=== PATIENT | female | born 1975 | race Caucasian/White ===

== ENCOUNTER → 2016-09-24 | Outpatient (CLI) | payer BC ==
--- NOTE | 2016-09-25 11:42 | MM ---
Reason for exam: screening (asymptomatic). Last mammogram was performed 1 year and 1 month ago. History: Patient had first child at age 33. Family history of breast cancer in mother at age 42 and breast cancer in sister at age 29. Retro-pectoral silicone gel implants in both breasts, July 2014. Physical Findings: A clinical breast exam by your physician is recommended on an annual basis and results should be correlated with mammographic findings. MG Screening Mammo Implant/CAD Bilateral CC, MLO, and ID view(s) were taken. Prior study comparison: August 23, 2015, bilateral MG 3d screen mammo imp/cad. October 29, 2012, bilateral digital screening mammo w/CAD. The breast tissue is heterogeneously dense. This may lower the sensitivity of mammography. Bilateral implants are intact. No significant changes when compared with prior studies. ASSESSMENT: Benign, BI-RAD 2 RECOMMENDATION: Routine screening mammogram of both breasts in 1 year.
== END | disposition home or self-care (01) ==
LOC: RADMAMWWP 13:49
PROVIDERS: ATTEND Obstetrics & Gynecology
DX: Z12.31 Encounter for screening mammogram for malignant neoplasm of breast (principal)

== ENCOUNTER → 2017-12-09 | Outpatient (CLI) | payer OTHER ==
--- NOTE | 2017-12-10 13:35 | MM ---
Reason for exam: screening (asymptomatic). Last mammogram was performed 1 year and 2 months ago. History: Patient had first child at age 33. Family history of breast cancer in mother at age 42 and breast cancer in sister at age 29. Retro-pectoral silicone gel implants in both breasts, July 2014. Physical Findings: A clinical breast exam by your physician is recommended on an annual basis and results should be correlated with mammographic findings. MG Screening Mammo Implant/CAD Bilateral CC, MLO, and ID view(s) were taken. Prior study comparison: September 24, 2016, bilateral MG screening mammo implant/CAD. August 23, 2015, bilateral MG 3d screen mammo imp/cad. The breast tissue is heterogeneously dense. This may lower the sensitivity of mammography. No suspicious abnormality. Retropectoral silicone implants. No significant changes when compared with prior studies. ASSESSMENT: Negative, BI-RAD 1 RECOMMENDATION: Routine screening mammogram of both breasts in 1 year.
== END | disposition home or self-care (01) ==
LOC: RADMAMWWP 15:37
PROVIDERS: ATTEND Obstetrics & Gynecology
DX: Z12.31 Encounter for screening mammogram for malignant neoplasm of breast (principal); Z80.3 Family history of malignant neoplasm of breast
CPT/HCPCS: 77067

== ENCOUNTER → 2018-12-27 | Outpatient (CLI) | payer OTHER ==
--- NOTE | 2018-12-29 09:42 | MM ---
Reason for exam: screening (asymptomatic). Last mammogram was performed 1 year and 1 month ago. History: Patient had first child at age 33. Family history of breast cancer in mother at age 42 and breast cancer in sister at age 29. Retro-pectoral silicone gel implants in both breasts, July 2014. Physical Findings: A clinical breast exam by your physician is recommended on an annual basis and results should be correlated with mammographic findings. MG Screening Mammo Implant/CAD Bilateral CC, MLO, and ID view(s) were taken. Prior study comparison: December 09, 2017, bilateral MG screening mammo implant/CAD. September 24, 2016, bilateral MG screening mammo implant/CAD. The breast tissue is heterogeneously dense. This may lower the sensitivity of mammography. Bilateral breast prothesis. No significant changes when compared with prior studies. ASSESSMENT: Benign, BI-RAD 2 RECOMMENDATION: Routine screening mammogram of both breasts in 1 year.
== END | disposition home or self-care (01) ==
LOC: RADMAMWWP 15:31
PROVIDERS: ATTEND Obstetrics & Gynecology
DX: Z12.31 Encounter for screening mammogram for malignant neoplasm of breast (principal); Z98.82 Breast implant status
CPT/HCPCS: 77067

== ENCOUNTER → 2019-02-18 | Outpatient (CLI) | payer OTHER ==
[2019-02-18 15:30] LABS: Basophils # (A) 0.1 k/uL (0-0.2); Basophils % (A) 1 %; Eosinophils # (A) 0.1 k/uL (0-0.7); Eosinophils % (A) 1 %; HCT 42.1 % (34.0-46.0); HGB 14.6 gm/dL (11.4-16.0); Lymphocytes # (A) 1.6 k/uL (1.0-4.8); Lymphocytes % (A) 16 %; MCHC 34.7 g/dL (31.0-37.0); MCV 89.1 fL (80.0-100.0); Mean Platelet Volume 7.3; Monocytes # (A) 0.5 k/uL (0-1.0); Monocytes % (A) 5 %; Neutrophils # (A) 7.7 k/uL (1.3-7.7); Neutrophils % (A) 76 %; Platelet Count 331 k/uL (150-450); RBC 4.73 m/uL (3.80-5.40); RDW 12.4 % (11.5-15.5); WBC 10.2 k/uL (3.8-10.6)
[2019-02-18 23:25] LABS: African American GFR (CKD) 90.8 (60.0-200.0); Albumin 4.8 g/dL (3.80-4.90); Albumin/Globulin Ratio 1.92 (1.60-3.17); Anion Gap 10.4 mmol/L (4.00-12.00); BUN/Creat Ratio 13.33 Ratio (12.00-20.00); Calcium 9.6 mg/dL (8.7-10.3); Carbon Dioxide 25.6 mmol/L (21.6-31.8); Globulin 2.5 g/dL (1.6-3.3); Potassium 3.7 mmol/L (3.5-5.5); Total Bilirubin 0.4 mg/dL (0.3-1.2); Total Protein 7.3 g/dL (6.2-8.2)
--- NOTE | 2019-02-19 21:14 | XR ---
EXAMINATION TYPE: XR KUB DATE OF EXAM: 02/18/2019 COMPARISON: None HISTORY: R 10.13, K 59.09 TECHNIQUE: Abdomen is examined in the frontal upright view. FINDINGS: Multiple surgical clips are within the abdomen. Psoas margins are normal. Organomegaly is n ot evident. No suspicious air-fluid levels are present. No differential air-fluid levels are present. IMPRESSION: 1. Nonspecific abdomen.
== END ==
LOC: LABWHC1 14:35
PROVIDERS: ATTEND Nurse Practitioner Family
DX: K59.09 Other constipation (principal); R10.13 Epigastric pain
CPT/HCPCS: 36415; 74018; 80053; 82150; 82977; 83690; 85025

== ENCOUNTER → 2019-02-22 | Outpatient (CLI) | payer OTHER ==
--- NOTE | 2019-02-22 10:09 | CT ---
EXAMINATION TYPE: CT abdomen pelvis wo con DATE OF EXAM: 02/22/2019 COMPARISON: None HISTORY: Generalized abdominal pain. Diarrhea CT DLP: 869 mGycm Examination of the solid and hollow viscera is limited given the lack of contrast. FINDINGS: LUNG BASES: No evidence for nodule. No evidence for infiltrate. LIVER/GB: Cholecystectomy clips noted. No space-occupying hepatic lesion. PANCREAS: No pancreatic mass identified. No inflammatory process seen. SPLEEN: No evidence for splenomegaly. No intrasplenic lesions seen. ADRENALS: No adrenal nodules identified. No evidence for thickening. KIDNEYS: No evidence for renal mass. No nephrolithiasis. No hydronephrosis. BOWEL: Appendix has a normal appearance. No evidence of bowel obstruction. No inflammatory process. Lymph nodes: No evidence for adenopathy greater than 1 cm. Abdominal aorta: Atheromatous changes seen. No evidence for aneurysm. Genital organs: Uterine masses felt to reflect underlying leiomyomatous change. Consider ultrasound c orrelation. Ovaries are grossly unremarkable. Other: No significant abnormality. IMPRESSION: Uterine masses felt to reflect underlying leiomyomatous change. Consider ultrasound correlation.
== END | disposition home or self-care (01) ==
LOC: RADCTMAIN 09:13
PROVIDERS: ATTEND Nurse Practitioner Family
DX: R10.84 Generalized abdominal pain (principal); R31.9 Hematuria, unspecified; R19.7 Diarrhea, unspecified; Z88.5 Allergy status to narcotic agent
CPT/HCPCS: 74176

== ENCOUNTER → 2019-03-04 | Outpatient (CLI) | payer OTHER ==
--- NOTE | 2019-03-04 09:08 | US ---
EXAMINATION TYPE: US transvaginal DATE OF EXAM: 03/04/2019 COMPARISON: CT 2018, US 2014 CLINICAL HISTORY: R19.09 UTERUS MASS. History of uterine, heavy irregular cycles, 8, para 5, miscarriage 3, history of tubal ligation and uterine ablation. TECHNIQUE: Transvaginal exam only per ordering physician. Date of LMP: 02/19/2019 EXAM MEASUREMENTS: Uterus: 10.5 x 7.3 x 9.3 cm Endometrial Stripe: 0.6 cm Right Ovary: 3.2 x 2.1 x 1.7 cm Left Ovary: 3.2 x 2.6 x 2.0 cm 1. Uterus: retroverted, enlarged, heterogeneous with multiple leiomyomas. The largest measures 5.1 x 3.9 x 3.6cm. These appear intramural. 2. Endometrium: appears wnl 3. Right Ovary: dominant follicle measuring 1.2cm 4. Left Ovary: multiple follicles with largest measuring 1.3cm 5. Bilateral Adnexa: wnl 6. Posterior cul-de-sac: small amount of free fluid IMPRESSION: 1. Heterogenous uterus with multiple probable leiomyomas the largest measuring up to 5.1 cm. These ap pear intramural. 2. Follicular changes of the ovaries, likely physiologic with a trace amount of free fluid in the pel vis, also likely physiologic.
== END | disposition home or self-care (01) ==
LOC: RADUSWWP 08:05
PROVIDERS: ATTEND Family Medicine
DX: R19.09 Other intra-abdominal and pelvic swelling, mass and lump (principal)
CPT/HCPCS: 76830

== ENCOUNTER → 2019-05-03 | Outpatient (CLI) | payer OTHER ==
[2019-05-03 17:11] LABS: Basophils % (A) 1 %; Eosinophils # (A) 0.2 k/uL (0-0.7); Eosinophils % (A) 2 %; HGB 14.1 gm/dL (11.4-16.0); Lymphocytes # (A) 2.2 k/uL (1.0-4.8); Lymphocytes % (A) 28 %; MCH 31.3 pg (25.0-35.0); MCHC 34.4 g/dL (31.0-37.0); MCV 91.1 fL (80.0-100.0); Mean Platelet Volume 7.5; Monocytes # (A) 0.5 k/uL (0-1.0); Monocytes % (A) 7 %; Neutrophils # (A) 4.8 k/uL (1.3-7.7); Neutrophils % (A) 61 %; Platelet Count 340 k/uL (150-450); RDW 12.2 % (11.5-15.5); WBC 7.8 k/uL (3.8-10.6)
[2019-05-03 17:28] LABS: African American GFR (CKD) >90 (>60 ml/min/1.73 sqM); Anion Gap 9 mmol/L; Blood Urea Nitrogen 8 mg/dL (7-17); Calcium 9.4 mg/dL (8.4-10.2); Carbon Dioxide 26 mmol/L (22-30); Chloride 106 mmol/L (98-107); Glucose 132 mg/dL (74-99); Non-African American GFR(CKD) >90 (>60 ml/min/1.73 sqM); Sodium 141 mmol/L (137-145)
== END | disposition home or self-care (01) ==
LOC: LABPAT 16:01
PROVIDERS: ATTEND Obstetrics & Gynecology
DX: Z01.812 Encounter for preprocedural laboratory examination (principal)
CPT/HCPCS: 36415; 80048; 85025; 86850; 86900; 86901

== ENCOUNTER 2019-05-12 06:04 | Day surgery (SDC) | payer OTHER ==
[2019-05-09 14:28] VITALS: BMI 27.9
--- NOTE | 2019-05-11 16:32 | P.HPOB ---
History of Present Illness H&P Date: 05/11/19 Chief Complaint: dysfunctional uterine bleeding: Failed NovaSure Dru is a 43 old female who underwent a NovaSure procedure in the past for dysfunctional uterine bleeding. Dysfunctional uterine bleeding has persisted despite the NovaSure. She also has known fibroids and they have been growing slightly. The last fibroid was measured to be 5.1 cm she also has pain with intercourse and generalized pain especially dysmenorrhea. She is scheduled for a robotic-assisted laparoscopic hysterectomy with bilateral salpingectomy possible SEBASTIAN possible BSO. Risks/benefits/alternatives to this procedure were discussed with the patient in detail and did include but were not limited to bleeding and infection damage to bladder/bowel/vascular injuries/nerve damage/ureteral injuries. She is also going to have a diagnostic cystoscopy at the conclusion of the procedure to verify no injury to bladder or ureters. All questions were answered for her prior to proceeding to the operating room. It should be noted that her symptoms have slowly progressed and at this time due to the significant pain and bleeding she is unable to function well and she is scheduled for definitive surgery at this time. Past Medical History Past Medical History: No Reported History Additional Past Medical History / Comment(s): migraines, abnormal vaginal bleeding and fibroids History of Any Multi-Drug Resistant Organisms: None Reported Past Surgical History: Cholecystectomy, Tubal Ligation Past Anesthesia/Blood Transfusion Reactions: No Reported Reaction Smoking Status: Never smoker - Past Family History Mother Family Medical History: Cancer Medications and Allergies Home Medications Medication Instructions Recorded Confirmed Type Ibuprofen [Motrin Ib] 200 mg PO DIRECTED PRN 05/09/19 05/09/19 History Allergies Allergy/AdvReac Type Severity Reaction Status Date / Time codeine Allergy Dyspnea Verified 05/09/19 14:22 Exam Osteopathic Statement: *. No significant issues noted on an osteopathic structural exam other than those noted in the History and Physical/Consult. - OBG Physical Exam Breast: both: normal (no masses) Abdomen: bowel sounds normal, no diffuse tenderness, no bruit present, no guarding noted, no hepatomegaly, no splenomegaly, no mass Vulva: both: normal Vagina: normal moisture, no discharge Cervix: no lesion, no discharge Uterus: normal size, normal contour Adnexa: both: normal Anus/Rectum: normal perianal skin, no rectal mass, no hemorrhoids, heme negative
[~2019-05-12 06:04] MED LIST: DEXAMETHASONE SOD PHOSPHATE 10 MG/ML 1 ML VIAL IV ONE; HYDROmorphone 0.5 MG/0.5 ML SYRINGE IVP PRN; MIDAZOLAM 2 MG/2 ML VIAL IV PRN; ONDANSETRON 4 MG/2 ML VIAL IVP ONE; SCOPOLAMINE 1.5MG/72HR PATCH TRANSDERM ONE
[2019-05-12] MEDS: LACTATED RINGERS 1,000 ML IV SCH ×2 (06:35→06:43)
[2019-05-12] MEDS: LIDOCAINE 1% 20 ML VIAL (10MG/ML) FOR IV START INTRADERMA PRN ×2 (06:36→06:43)
[2019-05-12] MEDS ORDERED: MIDAZOLAM 2 MG/2 ML VIAL IV ONE (07:07)
[2019-05-12] MEDS ORDERED: fentaNYL (PF) 50 MCG/ML 2 ML AMP IV ONE (07:07)
[2019-05-12] MEDS ORDERED: MIDAZOLAM 2 MG/2 ML VIAL ONE (07:33)
[2019-05-12] MEDS ORDERED: GLYCOPYRROLATE 0.2 MG/ML 2 ML VIAL ONE (07:33)
[2019-05-12] MEDS ORDERED: NEOSTIGMINE 1 MG/ML 10 ML VIAL ONE (07:33)
[2019-05-12] MEDS ORDERED: SUCCINYLCHOLINE CHLORIDE 100 MG/5 ML SYR IV ONE (07:33)
[2019-05-12] MEDS ORDERED: PROPOFOL 10 MG/ML 20 ML VIAL IV ONE (07:33)
[2019-05-12] MEDS ORDERED: fentaNYL (PF) 50 MCG/ML 2 ML AMP ONE (07:33)
[2019-05-12] MEDS ORDERED: ROCURONIUM BROMIDE 10 MG/ML 10 ML VIAL IV ONE (07:33)
[2019-05-12] MEDS ORDERED: LIDOCAINE 1% INJ 10MG/ML (20 ML MDV) ONE (07:33)
[2019-05-12] MEDS ORDERED: diphenhydrAMINE 50 MG/ML 1 ML VIAL ONE (07:33)
[2019-05-12] MEDS ORDERED: MORPHINE SULFATE (PF) 0.3 MG/0.3 ML SYR ONE (07:33)
[2019-05-12] MEDS ORDERED: BUPIVACAINE (PF) 0.25% 30 ML VIAL SQ ONE ×2 (08:19)
[2019-05-12] MEDS ORDERED: ONDANSETRON 4 MG/2 ML VIAL IVP PRN (09:23)
[2019-05-12] MEDS ORDERED: SIMETHICONE 80 MG CHEWABLE PO PRN (09:23)
--- NOTE | 2019-05-12 09:31 | P.OP ---
Date of Procedure: 05/12/19 Preoperative Diagnosis: dysfunctional uterine bleeding, fibroid uterus, failed NovaSure Postoperative Diagnosis: same Procedure(s) Performed: robotic-assisted laparoscopic hysterectomy with bilateral salpingectomy Anesthesia: SANDRA Surgeon: Robby Sneed Lot Associate #1: Citlali Dillard Estimated Blood Loss (ml): 50 IV fluids (ml): 400 Urine output (ml): 100 Pathology: other (uterus and cervix and fallopian tubes) Condition: stable Disposition: floor Operative Findings: very large posterior fibroid otherwise normal female anatomy Description of Procedure: patient was taken to the operating suite where a general anesthetic was found be adequate. She was prepped and draped in the normal sterile fashion and placed in dorsal lithotomy position. Initially a weighted speculum was inserted into the vagina and the anterior lip of the cervix identified and grasped with a single-tooth tenaculum. Cervix was then dilated and sounded to 8 cm. A 3.5 cm cup was used with the Courtney manipulator. Sutures were placed at 3 and 9 to assist in removal. Once this was completed Strickland catheter was placed and instruments otherwise were removed from the vagina. Close were then changed and attention was turned to abdominal portion of the procedure where 2 mL a course of Marcaine was injected periumbilically. Through this injected anesthetic a 5 mm skin incision was made and through this incision under direct visualization with an optical trocar and sleeve the camera was inserted. Once peritoneal placement was assured gas was allowed to fully insufflate the abdomen and patient was placed in steep Trendelenburg position at approximately 25. Once this was completed 2 lateral ports were placed 10 cm from the umbilicus and then a fourth port and sleeve was inserted 31 cm incision between the left lateral and the medial port. Camera port was then exchanged for robotic port and the laparoscopic equipment was removed from the field. Robot was then brought in and docked with a scissor and the one arm and a Maryland grasper in the 2 arm. At this point I did break scrub and go to the console. Uterus was then elevated and tipped right-hand side where the left fallopian tube was excised and removed. Utero-ovarian ligament was identified cauterized and transected broad ligament tissues to the round ligament were then cauterized and transected. The round ligament was then cauterized transected and anterior and posterior leaves of the broad ligament were developed to skeletonize the vasculature. Once this was completed uterus was brought down retroverted and the bladder flap identified. It was undermined with Maryland grasper and incised across face uterus with the scissor once this was accomplished the bladder flap was completely and bluntly dissected off of the uterine wall. In a similar fashion on the right side of the uterus was developed with fallopian tube also be removed. Once was completed cauterization of the uterine vasculature was done laterally and then an anterior colpotomy was made with a scissor. Following the cup in a counterclockwise fashion we are able to follow 360 continuing to cheating ahead with cauterization to maintain excellent hemostasis throughout. Due to the heaviness of the uterus and largeness of the fibroid at points the procedure did slow allowing frustrated maintain both pneumoperitoneum and hemostasis. Once 3 and 60 was achieved uterus was brought into the vagina to maintain pneumoperitoneum. All pedicles appeared hemostatic therefore instruments were exchanged for a make suture cut and a cardia grasper and using 20V lock suture the vaginal cuff was closed. With hemostasis obtained pelvis was irrigated all fluid was then suctioned out and patient was had the robot undocked and 5 deep breaths were provided during this process. 4-0 Vicryl was then used to close the incision subcuticular once trochars were removed. All gas was also obviously of allowed to expel from the abdomen. During this pro cess I also did a cystoscopy with excellent flow noted from both ureteral jets. Sponge, lap, needle counts were all correct 2. Patient was then taken to the recovery room in stable and satisfactory condition.
[2019-05-12] MEDS ORDERED: KETOROLAC 30 MG/ML 1 ML VIAL IVP ONE (10:42)
[2019-05-12] MEDS ORDERED: NALOXONE 0.4 MG/ML 1 ML VIAL IV PRN (11:36)
[2019-05-12] MEDS ORDERED: diphenhydrAMINE 50 MG/ML 1 ML VIAL IVP PRN (11:36)
[2019-05-12] MEDS ORDERED: NALBUPHINE 10 MG/ML (1 ML AMP) IV PRN (11:36)
[2019-05-12] MEDS ORDERED: LACTATED RINGERS 1,000 ML IV ONE (11:44)
[2019-05-12] MEDS: SENNOSIDES-DOCUSATE SODIUM 1 EACH TAB PO SCH (20:07)
[2019-05-12] MEDS: KETOROLAC 30 MG/ML 1 ML VIAL IVP PRN (20:07)
[2019-05-13] MEDS: KETOROLAC 30 MG/ML 1 ML VIAL IVP PRN (07:51)
[2019-05-13] MEDS: SENNOSIDES-DOCUSATE SODIUM 1 EACH TAB PO SCH (07:52)
[2019-05-13 08:21] LABS: Basophils % (A) 0 %; Eosinophils # (A) 0.1 k/uL (0-0.7); Eosinophils % (A) 1 %; HCT 34.5 % (34.0-46.0); HGB 11.9 gm/dL (11.4-16.0); Lymphocytes # (A) 1.8 k/uL (1.0-4.8); Lymphocytes % (A) 21 %; MCH 31.7 pg (25.0-35.0); MCHC 34.4 g/dL (31.0-37.0); MCV 92.1 fL (80.0-100.0); Mean Platelet Volume 7.9; Monocytes # (A) 0.7 k/uL (0-1.0); Monocytes % (A) 8 %; Neutrophils % (A) 69 %; Platelet Count 263 k/uL (150-450); RBC 3.75 m/uL (3.80-5.40); RDW 12.1 % (11.5-15.5); WBC 8.7 k/uL (3.8-10.6)
--- NOTE | 2019-05-13 08:33 | P.PN ---
Progress Note - Text 05/13 42-year-old female status post robotic hysterectomy. Patient had a spinal Duramorph for postop pain control , patient seen and evaluated this morning, she has a VAS of 2. No complains of nausea vomiting. Patient has complains of pruritus.
[2019-05-13 08:34] VITALS: BP 117/69; PULSE 75; RESP 12; TEMP 98.2
--- NOTE | 2019-05-13 13:03 | P.DS ---
Providers Expected date of discharge: 05/13/19 Attending physician: Robby Sneed Primary care physician: [facility] Course: Mirian is doing very well post op day 1. She is ambulating, voiding and tolerating her diet. She voices no complaints and her vital signs are stable and she is afebrile. She is also passing flatus and is requesting discharge to home today. On physical exam again vital signs are stable. Heart regular, lungs clear, extremities are without pain. Abdomen soft incisions are intact. She has bowel sounds. Assessment postop day 1. Plan discharge to home follow up with me in approximately 2 weeks. Discharge instructions were thoroughly reviewed and all questions were answered for her prior to her discharge. Patient Condition at Discharge: Good Plan - Discharge Summary Discharge Rx Participant: Yes New Discharge Prescriptions: New Ibuprofen [Motrin] 600 mg PO Q6HR PRN #30 tab PRN Reason: Pain HYDROcodone/APAP 5-325MG [Durham 5-325] 1 tab PO Q4HR PRN #30 tab PRN Reason: Pain No Action Ibuprofen [Motrin Ib] 200 mg PO DIRECTED PRN PRN Reason: Pain Discharge Medication List Ibuprofen [Motrin Ib] 200 mg PO DIRECTED PRN 05/09/19 [History] HYDROcodone/APAP 5-325MG [Durham 5-325] 1 tab PO Q4HR PRN #30 tab 05/13/19 [Rx] Ibuprofen [Motrin] 600 mg PO Q6HR PRN #30 tab 05/13/19 [Rx] Follow up Appointment(s)/Referral(s): Robby Sneed DO [Doctor of Osteopathic Medicine] - 2 Weeks Activity/Diet/Wound Care/Special Instructions: No heavy lifting, limit stairs and driving and complete pelvic rest. If any high temperatures, heavy bleeding, or severe pain call my office Discharge Disposition: HOME SELF-CARE
== END 2019-05-13 13:28 | disposition home or self-care (01) ==
LOC: OR 06:04 → 4SSUR 11:41 → OR 05-13 13:28
PROVIDERS: ATTEND Obstetrics & Gynecology
DX: D25.1 Intramural leiomyoma of uterus (principal); D25.2 Subserosal leiomyoma of uterus; N72 Inflammatory disease of cervix uteri; N83.8 Other noninflammatory disorders of ovary, fallopian tube and broad ligament; N85.8 Other specified noninflammatory disorders of uterus; G43.909 Migraine, unspecified, not intractable, without status migrainosus; K21.9 Gastro-esophageal reflux disease without esophagitis; Z88.5 Allergy status to narcotic agent; Z79.1 Long term (current) use of non-steroidal anti-inflammatories (NSAID); Z90.49 Acquired absence of other specified parts of digestive tract; Z98.51 Tubal ligation status
CPT/HCPCS: 81025; 86900; 86901; 85025; 86850; 58573; J2250; J1200; J1100; J2710; J0690; J2405; J2001; J2274; J3010; J1885 ×2; J0330; J2704; 88307

== ENCOUNTER → 2020-05-31 | Outpatient (CLI) | payer OTHER ==
--- NOTE | 2020-06-01 12:56 | MM ---
Reason for exam: screening (asymptomatic). Last mammogram was performed 1 year and 5 months ago. History: Patient had first child at age 33. Family history of breast cancer in mother at age 42 and breast cancer in sister at age 29. Retro-pectoral silicone gel implants in both breasts, July 2014. Physical Findings: A clinical breast exam by your physician is recommended on an annual basis and results should be correlated with mammographic findings. MG 3D Screen Mammo Imp/Cad Bilateral CC, MLO, and ID view(s) were taken. XCCL view(s) were taken of the right breast. Prior study comparison: December 27, 2018, bilateral MG screening mammo implant/CAD. December 09, 2017, bilateral MG screening mammo implant/CAD. The breast tissue is heterogeneously dense. This may lower the sensitivity of mammography. Bilateral breast prothesis. No significant changes when compared with prior studies. ASSESSMENT: Benign, BI-RAD 2 RECOMMENDATION: Routine screening mammogram of both breasts.
== END | disposition home or self-care (01) ==
LOC: RADMAMWWP 13:38
PROVIDERS: ATTEND Obstetrics & Gynecology
DX: Z12.31 Encounter for screening mammogram for malignant neoplasm of breast (principal); Z80.3 Family history of malignant neoplasm of breast
CPT/HCPCS: 77063; 77067

== ENCOUNTER → 2021-03-29 | Outpatient (CLI) | payer OTHER ==
[2021-03-29 17:11] LABS: Basophils # (A) 0.04 X 10*3/uL (0.00-0.10); Basophils % (A) 0.4 %; Eosinophils # (A) 0.08 X 10*3/uL (0.04-0.35); Eosinophils % (A) 0.8 %; HCT 44.8 % (37.2-46.3); HGB 14.8 g/dL (12.0-15.0); Lymphocytes # (A) 1.76 X 10*3/uL (0.90-5.00); Lymphocytes % (A) 17.1 %; MCH 30.5 pg (27.0-32.0); MCV 92.2 fL (80.0-97.0); Mean Platelet Volume 10.4 fL (9.5-12.2); Monocytes # (A) 0.72 X 10*3/uL (0.20-1.00); Neutrophils # (A) 7.62 X 10*3/uL (1.80-7.70); Neutrophils % (A) 74.2 %; Platelet Count 334 X 10*3/uL (140-440); RBC 4.86 X 10*6/uL (4.10-5.20); RDW 12.6 % (11.5-14.5); WBC 10.27 X 10*3/uL (4.50-10.00)
[2021-03-29 20:34] LABS: African American GFR (CKD) 105.8 (60.0-200.0); Albumin 4.6 g/dL (3.8-4.9); Albumin/Globulin Ratio 1.56 (1.60-3.17); Anion Gap 15.5 mmol/L (4.00-12.00); BUN/Creat Ratio 9.48 Ratio (12.00-20.00); Blood Urea Nitrogen 7.4 mg/dL (9.0-27.0); Calcium 9.4 mg/dL (8.7-10.3); Carbon Dioxide 21.2 mmol/L (21.6-31.8); Globulin 2.9 g/dL (1.6-3.3); Non-African American GFR(CKD) 91.2 (60.0-200.0); Potassium 3.5 mmol/L (3.5-5.5); Total Bilirubin 0.3 mg/dL (0.30-1.20); Total Protein 7.5 g/dL (6.2-8.2)
== END | disposition home or self-care (01) ==
LOC: LABWHC1 09:42
PROVIDERS: ATTEND Internal Medicine
DX: L50.9 Urticaria, unspecified (principal)
CPT/HCPCS: 36415; 80053; 84443; 85025; 86038; 86160

== ENCOUNTER → 2021-09-25 | Outpatient (CLI) | payer OTHER ==
--- NOTE | 2021-09-25 12:26 | MM ---
Reason for exam: screening (asymptomatic). Last mammogram was performed 1 year and 4 months ago. History: Patient had first child at age 33. Family history of breast cancer in mother at age 42 and breast cancer in sister at age 29. Retro-pectoral silicone gel implants in both breasts, July 2014. Physical Findings: A clinical breast exam by your physician is recommended on an annual basis and results should be correlated with mammographic findings. MG 3D Screen Mammo Imp/Cad Bilateral CC, MLO, and ID view(s) were taken. Prior study comparison: May 31, 2020, bilateral MG 3d screen mammo imp/cad. December 27, 2018, bilateral MG screening mammo implant/CAD. The breast tissue is heterogeneously dense. This may lower the sensitivity of mammography. Bilateral implants are intact. No significant changes when compared with prior studies. ASSESSMENT: Negative, BI-RAD 1 RECOMMENDATION: Routine screening mammogram of both breasts in 1 year.
== END | disposition home or self-care (01) ==
LOC: RADMAMWWP 07:51
PROVIDERS: ATTEND Obstetrics & Gynecology
DX: Z12.31 Encounter for screening mammogram for malignant neoplasm of breast (principal); Z80.3 Family history of malignant neoplasm of breast
CPT/HCPCS: 77063; 77067

== ENCOUNTER → 2021-12-26 | Outpatient (CLI) | payer OTHER ==
--- NOTE | 2021-12-26 09:57 | US ---
EXAMINATION TYPE: US abdomen complete DATE OF EXAM: 12/26/2021 COMPARISON: None CLINICAL HISTORY: For a 6-year-old female R10.11 RUQ PAIN,R10.13 EPIGASTRIC PAIN. Pain. Hx cholecyste ctomy. Pain in the right side under the ribs. TECHNIQUE: Multiple sonographic images of the abdomen are obtained. FINDINGS: EXAM MEASUREMENTS: Liver Length: 17.9 cm CBD: 0.4 cm Spleen: 10.7 cm Right Kidney: 12.0 x 4.8 x 44.3 cm Left Kidney: 11.8 x 6.8 x 5.3 cm BATCH ATTENDANT NOTES: Limited due to gas. Pancreas: Tail obscured by bowel gas shadowing. Visualized portions show no gross abnormality. Liver: Borderline in size. No focal lesion. Overall homogeneous appearance. Gallbladder: Surgically absent Evidence for sonographic Terrell's sign: No CBD: Portions seen appear wnl Spleen: Appears wnl Right Kidney: No hydronephrosis or masses seen Left Kidney: Two echogenic foci measuring up to 5 mm. No hydronephrosis. Upper IVC: Appears wnl Abd Aorta: Appears wnl, iliacs were obscured. IMPRESSION: Status post cholecystectomy. No biliary ductal dilatation. Borderline sized liver at 17.9 cm. A coupl e nonobstructive left renal calculi measuring up to 5 mm.
--- NOTE | 2021-12-26 10:20 | US ---
EXAMINATION TYPE: US pelvis complete transvag DATE OF EXAM: 12/26/2021 COMPARISON: None CLINICAL HISTORY: 46-year-old female R10.11 RUQ PAIN,R10.13 EPIGASTRIC PAIN. Pain. Hx partial hystere ctomy- patient states she has both ovaries. Hx tubal ligation, uterine ablation, fibroids. A3, hx 3 miscarriages. TECHNIQUE: Transabdominal sonographic images of the pelvis were acquired. Transvaginal sonographic i mages were medically necessary to better assess the following anatomy: Ovaries Date of LMP: At time of hysterectomy FINDINGS: EXAM MEASUREMENTS: Right Ovary: Obscured Left Ovary: 2.7 x 1.6 x 1.6 cm 1. Uterus: Surgically absent 2. Endometrium: Surgically absent 3. Right Ovary: Obscured, unable to visualize bowel gas 4. Left Ovary: There is follicular change with a dominant follicle measuring 1.2 cm. 5. Bilateral Adnexa: Appear wnl 6. Posterior cul-de-sac: Appears wnl IMPRESSION: 1. Status post hysterectomy. 2. Normal follicular change in the left ovary. 3. Unable to visualize the right ovary.
== END | disposition home or self-care (01) ==
LOC: RADUSWWP 08:14
PROVIDERS: ATTEND Family Medicine
DX: N20.0 Calculus of kidney (principal); R10.11 Right upper quadrant pain; R10.13 Epigastric pain; R10.84 Generalized abdominal pain
CPT/HCPCS: 76700; 76830; 76856

== ENCOUNTER → 2022-03-10 | Outpatient (CLI) | payer OTHER ==
--- NOTE | 2022-03-10 15:55 | CT ---
EXAMINATION TYPE: CT abdomen pelvis wo con DATE OF EXAM: 03/10/2022 COMPARISON: CT 02/22/2019 HISTORY: pain in left and right sides into patient's back. kidney stone protocol. STAT HOLD AND CALL. CT DLP: 426.30 mGycm Automated exposure control for dose reduction was used. TECHNIQUE: Helical acquisition of images from the lung bases through the pelvis. FINDINGS: Lack of intravenous contrast could compromise sensitivity. Multiple calcifications in the l eft hemipelvis is stable. Umbilical hernia contains fat. Surgical clip present within the mesenteric fat left of midline into the anterior abdominal wall is stable. LUNG BASES: Minimal dependent atelectatic changes present in the left lung base.. AORTA: No significant abnormality is appreciated. LIVER/GB: Patient is post cholecystectomy. No evident liver mass. PANCREAS: No significant abnormality is seen. SPLEEN: No significant abnormality is seen. ADRENALS: No significant abnormality is seen. KIDNEYS: Nonobstructive 4 mm calcification is present at the upper pole the left kidney. No evident h ydronephrosis. No evident ureteral calcification. REPRODUCTIVE ORGANS: Uterus is been removed in the interval. Left ovary appears somewhat bulky. Righ t ovary is within normal limits.. URINARY BLADDER: No significant abnormality is seen. BOWEL: No significant abnormality is seen. The appendix is not seen. FREE AIR: No Free Air is visible. ASCITES: Minimal fluid is present within the pelvis.. PELVIC ADENOPATHY: None visualized. RETROPERITONEAL ADENOPATHY: No Retroperitoneal Adenopathy visible. OSSEOUS STRUCTURES: No significant abnormality is seen. Sclerotic focus in the left sacrum is stable and may represent bone island. IMPRESSION: NONOBSTRUCTIVE LEFT NEPHROLITHIASIS. NONCONTRAST EXAM. SOME MINIMAL BASILAR ATELECTASIS SUSPECTED ON THE LEFT. POSTOP CHANGES DESCRIBED.
== END | disposition home or self-care (01) ==
LOC: RADCTMAIN 15:05
PROVIDERS: ATTEND Family Medicine
DX: N20.0 Calculus of kidney (principal); N30.01 Acute cystitis with hematuria
CPT/HCPCS: 74176

== ENCOUNTER → 2022-09-26 | Outpatient (CLI) | payer OTHER ==
--- NOTE | 2022-09-29 09:07 | MM ---
Reason for Exam: Screening (asymptomatic). Last screening mammogram was performed 12 month(s) ago. Patient History: Menarche at age 11. First Full-Term at age 33. Late child-bearing (after 30). Hysterectomy at age 44. 07/2014, Bilateral Implants. Niece had breast cancer, age 32. Sister had breast cancer, age 29. Mother had breast cancer, age 42. Risk Values: Lashawn 5 year model risk: 2.8%. NCI Lifetime model risk: 27.6%. Prior Study Comparison: 12/27/2018 Bilateral Screening Mammogram, [facility]. 05/31/2020 Bilateral Screening Mammogram, [facility]. 09/25/2021 Bilateral Screening Mammogram, [facility]. Tissue Density: There are scattered fibroglandular densities. Findings: Analyzed By CAD. Pattern appears symmetrical and stable. Bilateral breast prostheses are present. No significant interval changes are evident. No suspicious groups of microcalcifications, spiculated or lobular masses, architectural distortion or other secondary signs of malignancy are mammographically apparent. Overall Assessment: Benign, BI-RAD 2 Management: Screening Mammogram of both breasts in 1 year. A negative mammogram report should not preclude additional follow up of suspicious palpable abnormalities. Patient should continue monthly self breast exam. A clinical breast exam by your physician is recommended on an annual basis and results should be correlated with mammographic findings. Electronically signed and approved by: Koko Munoz D.O. Radiologis
== END | disposition home or self-care (01) ==
LOC: RADMAMWWP 15:02
PROVIDERS: ATTEND Obstetrics & Gynecology
DX: Z12.31 Encounter for screening mammogram for malignant neoplasm of breast (principal); Z80.3 Family history of malignant neoplasm of breast; Z98.82 Breast implant status
CPT/HCPCS: 77063; 77067

== ENCOUNTER → 2022-12-04 | Outpatient (CLI) | payer OTHER ==
--- NOTE | 2022-12-04 18:56 | US ---
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 IMPRESSION: Normal homogeneous thyroid gland. No discrete nodules.
== END | disposition home or self-care (01) ==
LOC: RADUSWWP 12:04
PROVIDERS: ATTEND Family Medicine
DX: E01.0 Iodine-deficiency related diffuse (endemic) goiter (principal)
CPT/HCPCS: 76536

== ENCOUNTER → 2022-12-31 | Outpatient (CLI) | payer OTHER ==
[2022-12-31 21:23] LABS: Gliadin AB IgA, Deaminated POSITIVE; Gliadin AB IgA, Unit 15.8 U/mL; Gliadin AB IgG, Deaminated Negative (Negative); Gliadin AB IgG, Unit <0.4 U/mL
== END | disposition home or self-care (01) ==
LOC: LABWHC1 15:28
PROVIDERS: ATTEND Nurse Practitioner Family
DX: R19.4 Change in bowel habit (principal)
CPT/HCPCS: 36415; 83516; 85652; 86140